=== PATIENT | male | born 1940 | race Caucasian/White ===

== ENCOUNTER 2016-11-29 05:21 | Day surgery (SDC) | payer OTHER ==
--- NOTE | 2016-11-26 14:29 | EKG Report ---
Test Performed on : 11/26/2016 2:23:45 PM Test Reason : PAT Blood Pressure : / mmHG Vent. Rate : 084 BPM Atrial Rate : 129 BPM P-R Int : 000 ms QRS Dur : 090 ms QT Int : 380 ms P-R-T Axes : 000 021 005 degrees QTc Int : 449 ms Atrial fibrillation. with premature ventricular or aberrantly conducted complexes. Possible Inferior infarct , age undetermined Abnormal ECG When compared with ECG of 18-OCT-2016 11:36, Borderline criteria for Inferior infarct are now present Confirmed by Octavio Farley MD ([id number]) on 11/28/2016 9:11:17 PM
[2016-11-26 15:15] LABS: HEMATOCRIT 41.3 % (42.0-52.0); HEMOGLOBIN 13.5 g/dL (14.0-18.0); MCH 30.3 PG (27-31); MCHC 32.7 g/dL (33-37); MCV 92.8 FL (81-99); MPV 9.9 FL (7.4-10.4); RBC 4.45 XMIL (4.7-6.1)
[2016-11-26 15:31] LABS: INR 1.59; PROTIME 16.9 Seconds (9.2-11.7); PTT 30.6 Seconds (22.0-36.0)
[2016-11-26 15:35] LABS: AGAP 13; BUN 18 mg/dL (8-22); CALCIUM 9.4 mg/dL (8.8-10.2); CHLORIDE 100 mmol/L (98-107); COSMO 284; POTASSIUM 4.6 mmol/L (3.5-5.1); SODIUM 139 mmol/L (136-145); TCO2 26 mmol/L (25-35)
[2016-11-29] MEDS ORDERED: REGLAN ONE (05:40)
[2016-11-29] MEDS ORDERED: PEPCID ONE (05:40)
[2016-11-29] MEDS ORDERED: LR 1,000 ML ONE (05:40)
[2016-11-29] MEDS ORDERED: KEFZOL 2 GM/D5W 50 ML ONE (05:41)
[2016-11-29 08:20] VITALS: BP 119/56
--- NOTE | 2016-11-29 09:21 | Diag Imaging Result Document ---
PROCEDURE NAME: RETROGRADES 2 OR 3 FILMS - 11/29/2016 RETROGRADE PYELOGRAM, 15 IMAGES: FINDINGS: There is retrograde injection of the right ureteral orifice demonstrating a fairly normal ureter and collecting system. The orientation of the collecting system is somewhat unusual; however, there are no apparent mass on the recent CT of 10/20/2016. This most likely represents a normal variant orientation of the kidney. A similar appearance is present on the left side. There is no evidence of obstruction or fixed intraluminal filling defect. IMPRESSION: No evidence of mucosal lesion.
[2016-11-29] MEDS ORDERED: FENTANYL ONE (09:47)
[2016-11-29] MEDS ORDERED: DIPRIVAN 1% ONE (09:47)
[2016-11-29] MEDS ORDERED: DECADRON ONE (10:31)
[2016-11-29] MEDS ORDERED: SODIUM CHLORIDE 0.9% 10 ML ONE (10:31)
[2016-11-29] MEDS ORDERED: XYLOCAINE-MPF 2% ONE (10:31)
[2016-11-29] MEDS ORDERED: EPHEDRINE ONE (10:31)
--- NOTE | 2016-11-29 14:59 | OPERATIVE NOTE ---
PROCEDURE DATE: 11/29/2016 SURGEON: Dr. Ronn Pompa. PREOPERATIVE DIAGNOSES: Microscopic hematuria, bladder lesions, atypical urinary cytology. PRIMARY PROCEDURE: Cystoscopy, bilateral retrograde pyelogram, bladder biopsies with fulguration of bleeding. INDICATIONS: 76-year-old male, who presented with UTI. 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 He underwent cytology which revealed atypical cells. He was noted also to have microscopic hematuria. He presents for workup of the hematuria and bladder lesions. FINDINGS: Significant trilobar hypertrophy, unremarkable retrograde pyelograms, adequate hemostasis at the conclusion of the case. After obtaining informed consent, the patient brought to the operating room. Perioperative antibiotics and laryngeal mask anesthesia were administered. He was placed in the lithotomy position, prepped and draped in sterile fashion. 21-[place] rigid cystoscope was introduced. He had significant trilobar prostatic hypertrophy. His bladder had moderate trabeculations, but no diverticula or bladder stones. He did have aforementioned 4-5 areas of flat erythematous patches on the posterior bladder wall concerning for CIS. We began by performing retrograde pyelogram. The cone-tipped ureteral catheter was introduced into the left ureteral orifice and 50% diluted Omnipaque dye was used to perform the retrograde pyelogram. It revealed delicate caliceal system, no evidence of hydroureteronephrosis or filling defects. We then performed the same on the right side. Also revealed delicate caliceal system without evidence of hydroureteronephrosis or filling defects. We then turned our attention to bladder biopsy. Cold cup biopsy graspers were used to perform excisional biopsy of the aforementioned lesions. Those were sent off for pathologic determination. Bugbee electrocautery was used to cauterize the base of the resection as well as the adjacent lesions. Bladder was emptied and repeat look showed no evidence of active bleeding. The cystoscope was removed, he was extubated and taken to PACU for further recovery. ESTIMATED BLOOD LOSS: One mL. COMPLICATIONS: None. DISPOSITION: To PACU and subsequently home with prescriptions for [place] 5 (10), Keflex 500 (10).
== END 2016-11-29 08:25 | disposition home or self-care (01) ==
LOC: OPS 05:21
PROVIDERS: ATTEND Urology
DX: R31.29 Other microscopic hematuria (principal)
CPT/HCPCS: 74420; 80048; 82948; 85027; 85610; 85730; 88305; 88313; 93005; 93010; J0690; J1100; J3010; J7120; Q9966

== ENCOUNTER 2017-02-25 04:27 | Inpatient (IN) ==
[2017-02-25 04:51] LABS: MANUAL DIFF NEEDED? NO
[2017-02-25 04:58] LABS: URINE CULTURE NEEDED? NO; URINE MICRO REVIEW NEEDED? NO; URINE SOURCE CLEAN CATCH
[2017-02-25 05:00] LABS: BASO% 0.2 % (0.0-0.8); EOS# 0.07 X1000 (0.0-0.7); EOS% 0.7 % (0.0-10.0); HEMATOCRIT 38.5 % (42.0-52.0); LYMPH# 2.44 X1000 (1.2-3.4); LYMPH% 25.8 % (20.5-51.1); MCHC 33.8 g/dL (33-37); MCV 91.9 FL (81-99); MONO# 1.22 X1000 (0.11-0.59); MONO% 12.9 % (1.7-9.3); MPV 9.9 FL (7.4-10.4); NEUT% 60.4 % (42.2-75.2); PLT 244 X1000 (130-400); RBC 4.19 XMIL (4.7-6.1)
[2017-02-25 05:03] LABS: BILIRUBIN URINE NEGATIVE (NEGATIVE); BLOOD URINE MODERATE (NEGATIVE); COLOR YELLOW; GLUCOSE URINE NEGATIVE (NEGATIVE); LEUKOCYTES URINE NEGATIVE (NEGATIVE); NITRITE URINE NEGATIVE (NEGATIVE); PROTEIN URINE 50 mg/dL (NEGATIVE); SP GRAVITY URINE 1.019; TURBIDITY URINE CLEAR (CLEAR); UROBILINOGEN URINE NORMAL (NORMAL)
[2017-02-25 05:05] LABS: UR EPITHELIAL CELLS <10 /HPF (<10); URINE BACTERIA NEGATIVE /HPF; URINE RBC <10 /HPF (<10); URINE WBC <10 /HPF (<10)
[2017-02-25 05:13] LABS: ALLEN TEST YES; BE -1.4 mmoll (-3.0-3.0); BLOOD TYPE ARTERIAL; DRAW SITE R RADIAL; MODALITY CANNULA; O2(CT) 18.3 mL/dL (15.0-23.0); PCO2(98.6) 36 mmHg (35-45); PO2(98.6) 92 mmHg (60-100); SAMPLE BLOOD; SAO2 98.3 % (95.0-100.0); THB 13.5 g/dL (11.5-17.4); pH(98.6) 7.41 (7.35-7.45)
[2017-02-25 05:16] LABS: UR AMPHETAMINES QUAL NONE DETECTED (NONE DETECT); UR BARBITUATES QUAL NONE DETECTED (NONE DETECT); UR BENZODIAZEPIN QUAL NONE DETECTED (NONE DETECT); UR CANNABINOIDS QUAL NONE DETECTED (NONE DETECT); UR COCAINE QUAL NONE DETECTED (NONE DETECT); UR METHADONE QUAL NONE DETECTED (NONE DETECT); UR OPIATES QUAL PRESUMPTIVE POSITIVE (NONE DETECT); UR OXYCODONE QUAL NONE DETECTED (NONE DETECT); UR PCP QUAL NONE DETECTED (NONE DETECT)
[2017-02-25 05:33] LABS: ALBUMIN 3.5 g/dL (3.5-5.0); CALCIUM 9.1 mg/dL (8.8-10.2); POTASSIUM 4.4 mmol/L (3.5-5.1); TOTAL BILIRUBIN 0.52 mg/dL (0.20-1.00); TOTAL PROTEIN 7.2 g/dL (6.3-8.3)
--- NOTE | 2017-02-25 05:35 | EKG Report ---
Test Performed on : 02/25/2017 04:30:10 AM Test Reason : weakness Blood Pressure : / mmHG Vent. Rate : 097 BPM Atrial Rate : 092 BPM P-R Int : 000 ms QRS Dur : 094 ms QT Int : 350 ms P-R-T Axes : 000 050 016 degrees QTc Int : 444 ms Atrial fibrillation. Abnormal ECG When compared with ECG of 26-NOV-2016 14:23, Borderline criteria for Inferior infarct are no longer present Unconfirmed Result
[2017-02-25 06:29] LABS: INR 2.18; PROTIME 24.1 Seconds (9.2-11.7); PTT 42.2 Seconds (22.0-36.0)
--- NOTE | 2017-02-25 06:57 | PROVIDER DOCUMENTATION ---
HPI-General Adult - General Chief Complaint: Altered Mental Status Stated Complaint: weakness n/v Time Seen by Provider: 02/25/17 05:07 Source: patient, family Allergies/Adverse Reactions: Patient Allergies Allergy/AdvReac Type Severity Reaction Status Date / Time pneumococcal vaccine Allergy Mild SWELLING Verified 02/25/17 05:11 Home Medications: Home Medication List Medication Instructions Recorded Confirmed Last Taken Type Metoprolol Succinate E.r. [Toprol 50 mg PO BID 08/07/12 02/25/17 02/24/17 20:30 History Xl] Omeprazole Magnesium [Prilosec Otc] 40 mg PO QAM 08/07/12 02/25/17 02/24/17 11: 00 History Furosemide [Lasix] 40 mg PO QAM 12/30/12 02/25/17 02/24/17 11:00 History Metformin [Glucophage] 1,000 mg PO BID 12/30/12 02/25/17 02/24/17 20:30 History Potassium Chloride E.r. [Klor-Con] 20 meq PO QAM 12/30/12 02/25/17 02/24/17 11: 00 History Warfarin [Coumadin] 4 mg PO DIRECTED 12/30/12 02/25/17 02/24/17 20:30 History Ascorbic Acid [Vitamin C] 500 mg PO QAM 10/18/16 02/25/17 02/24/17 11:00 History Aspirin [Aspirin EC] 81 mg PO QAM 10/18/16 02/25/17 02/24/17 11:00 History Atorvastatin Calcium [Lipitor] 40 mg PO QHS 10/18/16 02/25/17 02/24/17 20:30 History Beta-Carotene [Beta Carotene] 75,000 unit PO QAM 10/18/16 02/25/17 02/24/17 11: 00 History Cetirizine HCl [Zyrtec] 10 mg PO QHS 10/18/16 02/25/17 02/24/17 20:30 History Gabapentin 200 mg PO BID 10/18/16 02/25/17 02/24/17 20:30 History Glimepiride 4 mg PO BID 10/18/16 02/25/17 02/24/17 20:30 History Insulin Detemir [Levemir] 20 unit SUBQ QAM 10/18/16 02/25/17 02/24/17 11:00 History Insulin Detemir [Levemir] 80 unit SUBQ QHS 10/18/16 02/25/17 02/24/17 20:30 History Levothyroxine [Synthroid] 112 microgm PO QAM 10/18/16 02/25/17 02/24/17 11:00 History Selenium 200 mcg PO QAM 10/18/16 02/25/17 02/24/17 11:00 History Calcium & Magnesium Carbonate 1 each PO QAM 11/26/16 02/25/17 02/24/17 11:00 History [Antacid Gelcap] Multivit-Min/FA/Lycopen/Lutein 1 each PO QAM 11/26/16 02/25/17 02/24/17 11:00 History [Centrum Silver Tablet] Ramipril [Altace] 10 mg PO QAM 11/26/16 02/25/17 02/24/17 11:00 History Mirabegron E.r. [Myrbetriq E.r] 25 mg PO QHS 02/25/17 02/25/17 02/24/17 20:30 History Warfarin [Coumadin] 2 mg PO DIRECTED 02/25/17 02/25/17 02/22/17 History - History of Present Illness -Gen Adult Nature of Presenting Problems: presents with generalized weakness. Pt felll while trying to get out of bed Thurs nite/Fri am, as unable to get up. EMS was called, helped pt back to bed. He had no pain @ time. He says the sl drop getting out of bed is what made him fall, no premonitory sx. Weakness has continued since the. He has been able to ambulate some with a walker. Daughter and noticed L eye drooping some since Sat. They were waiting to see his PCP tomorrow. This am, pt called because he had gotten turned cross-ways in bed, was unable to get up. He has had sl increased SOB. No abd pain, but had N/V x1 yest, and has had some diarrhea. Pt's only other fall was in Oct, when he was found to have a UTI, and was admitted for IV abx Location of Pain/Injury: reports: none Quality of Pain: reports: none Modifying Factors: improves with: movement (makes sx worse) Associated Symptoms: reports: other (see HPI) Similar Symptoms Previously?: Yes Recently seen or treated by another doctor?: No Review of Systems - Adult - REVIEW OF SYSTEMS - ADULT Constitutional: reports: see HPI Eyes: reports: see HPI Ears, Nose, Mouth & Throat: reports: no symptoms reported Cardiovascular: reports: no symptoms reported Respiratory: reports: see HPI Gastrointestinal: reports: see HPI Genitourinary: reports: no symptoms reported Musculoskeletal: reports: see HPI Integumentary: reports: no symptoms reported Neurological: reports: see HPI Psychiatric: reports: no symptoms reported Endocrine: reports: no symptoms reported Hematologic/Lymphatic: reports: no symptoms reported Allergic/Immunologic: reports: no symptoms reported Past History - Adult - PAST MEDICAL HISTORY-ADULT Review of Records: reports: Medications Reviewed Cardiovascular: reports: A-Fib, CAD, HTN Respiratory: reports: sleep apnea Musculoskeletal: reports: denies history Neurological: reports: other (benign positional vertigo) Endocrine/Immune: reports: Diabetes 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 - FAMILY HISTORY Family History: reviewed, not pertinent - SOCIAL HISTORY Smoking: denies Physical Exam-General - PHYSICAL EXAM-ADULT Initial Vital Signs Reviewed: Yes - CONSTITUTIONAL General Appearance: appears well, alert, no apparent distress - EYES Eyes: PERRL/EOMI, pink conjunctivae - HEAD, EARS, NOSE, MOUTH & THROAT HENMT: normocephalic/atraumatic, moist mucous membranes, normal ENT inspection, pharynx normal - NECK Neck: full range of motion, supple - RESPIRATORY Respiratory: lungs clear, normal breath sounds, no pleuratic chest pain, no respiratory distress, no accessory muscle use - CARDIOVASCULAR Cardiovascular: normal peripheral pulses, regular rate, rhythm, no gallop - GASTROINTESTINAL (ABDOMEN) Abdominal Exam: normal bowel sounds, non tender, soft - MUSCULOSKELETAL Back Exam: other (deferred, pt unable to sit) Extremity: normal range of motion, non-tender, pedal edema (2+) Peripheral Pulses: radial (R): 4+, radial (L): 4+ DTR: tricep (R): 4+, tricep (L): 4+, knee (R): 4+, knee (L): 4+, ankle (R): 4+, ankle (L): 4+ - SKIN Integumentary: normal color, normal turgor, warm/dry - NEUROLOGIC 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, grossly normal, no motor/sensory deficits - PSYCHIATRIC Psych/Mental Status: normal mood/affect, normal thought content, normal thought process, oriented x 3 Progress - PLAN OF CARE/RESULTS Progress/Plan/Lab Results: Vital Signs - 8 hr 02/25/17 04:36 02/25/17 05:23 02/25/17 06:19 Temperature 99.2 F 98.9 F Pulse Rate 100 H 94 H 99 H Respiratory Rate 19 19 16 Blood Pressure 111/82 136/78 154/78 O2 Sat by Pulse Oximetry 93 L 96 99 Laboratory Results - last 24 hr 02/25/17 02/25/17 02/25/17 04:30 04:30 04:30 WBC 9.46 RBC 4.19 L Hgb 13.0 L Hct 38.5 L MCV 91.9 MCH 31.0 MCHC 33.8 RDW Std Deviation 15.0 H Plt Count 244 MPV 9.9 Immature Gran % (Auto) 0.0 Neut % (Auto) 60.4 Lymph % (Auto) 25.8 [place] % (Auto) 12.9 H Eos % (Auto) 0.7 Baso % (Auto) 0.2 Immature Gran # (Auto) 0.00 Neut # (Auto) 5.71 Lymph # (Auto) 2.44 [place] # (Auto) 1.22 H Eos # (Auto) 0.07 Baso # (Auto) 0.02 PT INR PTT (Actin FS) Specimen Type Sample Site pH pCO2 pO2 HCO3 Base Excess Oxyhemoglobin ABG O2 Sat (Calculated) ABG O2 Saturation ABG Carboxyhemoglobin ABG Methemoglobin Geoff Test A-a O2 Difference Total Hemoglobin Lactate Liter Flow Blood Gas Modality FiO2 % Sodium 139 Potassium 4.4 Chloride 100 Carbon Dioxide 23 L Anion Gap 16 BUN 21 Creatinine 1.2 Estimated GFR/1.73 m2 59 BUN/Creatinine Ratio 18 Glucose 179 H Calculated Osmolality 285 Calcium 9.1 Total Bilirubin 0.52 AST 20 ALT 28 Alkaline Phosphatase 71 Creatine Kinase 30 Troponin T Total Protein 7.2 Albumin 3.5 Globulin 3.7 Albumin/Globulin Ratio 0.9 Urine Source Urine Color Urine Turbidity Urine pH Ur Specific [place] Urine Protein Ur Glucose (Stick) Ur Ketones (Stick) Urine Blood Urine Nitrite Urine Bilirubin Urobilinogen Dipstick Urine Leukocytes Urine WBC (Auto) Urine RBC (Auto) U Epithel Cells (Auto) Urine Bacteria (Auto) Urine Opiates Screen Ur Oxycodone Screen Ur Methadone, Qual Ur Barbiturates Screen Ur Phencyclidine Scrn Ur Amphetamines Screen U Benzodiazepines Scrn Urine Cocaine Screen U Cannabinoids Screen Plasma/Serum Ethyl Alc 02/25/17 02/25/17 02/25/17 04:30 04:30 04:44 WBC RBC Hgb Hct MCV MCH MCHC RDW Std Deviation Plt Count MPV Immature Gran % (Auto) Neut % (Auto) Lymph % (Auto) [place] % (Auto) Eos % (Auto) Baso % (Auto) Immature Gran # (Auto) Neut # (Auto) Lymph # (Auto) [place] # (Auto) Eos # (Auto) Baso # (Auto) PT 24.1 H INR 2.18 PTT (Actin FS) 42.2 H Specimen Type ARTERIAL Sample Site R RADIAL pH 7.41 pCO2 36 pO2 92 HCO3 23.8 Base Excess -1.4 Oxyhemoglobin 95.9 ABG O2 Sat (Calculated) 18.3 ABG O2 Saturation 98.3 ABG Carboxyhemoglobin 1.40 ABG Methemoglobin 1.0 Geoff Test YES A-a O2 Difference 63.0 Total Hemoglobin 13.5 Lactate 1.80 Liter Flow 2.0 Blood Gas Modality CANNULA FiO2 % 28.0 Sodium Potassium Chloride Carbon Dioxide Anion Gap BUN Creatinine Estimated GFR/1.73 m2 BUN/Creatinine Ratio Glucose Calculated Osmolality Calcium Total Bilirubin AST ALT Alkaline Phosphatase Creatine Kinase Troponin T < 0.010 Total Protein Albumin Globulin Albumin/Globulin Ratio Urine Source Urine Color Urine Turbidity Urine pH Ur Specific [place] Urine Protein Ur Glucose (Stick) Ur Ketones (Stick) Urine Blood Urine Nitrite Urine Bilirubin Urobilinogen Dipstick Urine Leukocytes Urine WBC (Auto) Urine RBC (Auto) U Epithel Cells (Auto) Urine Bacteria (Auto) Urine Opiates Screen Ur Oxycodone Screen Ur Methadone, Qual Ur Barbiturates Screen Ur Phencyclidine Scrn Ur Amphetamines Screen U Benzodiazepines Scrn Urine Cocaine Screen U Cannabinoids Screen Plasma/Serum Ethyl Alc 02/25/17 02/25/17 04:48 04:48 WBC RBC Hgb Hct MCV MCH MCHC RDW Std Deviation Plt Count MPV Immature Gran % (Auto) Neut % (Auto) Lymph % (Auto) [place] % (Auto) Eos % (Auto) Baso % (Auto) Immature Gran # (Auto) Neut # (Auto) Lymph # (Auto) [place] # (Auto) Eos # (Auto) Baso # (Auto) PT INR PTT (Actin FS) Specimen Type Sample Site pH pCO2 pO2 HCO3 Base Excess Oxyhemoglobin ABG O2 Sat (Calculated) ABG O2 Saturation ABG Carboxyhemoglobin ABG Methemoglobin Geoff Test A-a O2 Difference Total Hemoglobin Lactate Liter Flow Blood Gas Modality FiO2 % Sodium Potassium Chloride Carbon Dioxide Anion Gap BUN Creatinine Estimated GFR/1.73 m2 BUN/Creatinine Ratio Glucose Calculated Osmolality Calcium Total Bilirubin AST ALT Alkaline Phosphatase Creatine Kinase Troponin T Total Protein Albumin Globulin Albumin/Globulin Ratio Urine Source CLEAN CATCH Urine Color YELLOW Urine Turbidity CLEAR Urine pH 5.0 Ur Specific [place] 1.019 Urine Protein 50 A Ur Glucose (Stick) NEGATIVE Ur Ketones (Stick) NEGATIVE Urine Blood MODERATE A Urine Nitrite NEGATIVE Urine Bilirubin NEGATIVE Urobilinogen Dipstick NORMAL Urine Leukocytes NEGATIVE Urine WBC (Auto) <10 Urine RBC (Auto) <10 U Epithel Cells (Auto) <10 Urine Bacteria (Auto) NEGATIVE Urine Opiates Screen PRESUMPTIVE POSITIVE A Ur Oxycodone Screen NONE DETECTED Ur Methadone, Qual NONE DETECTED Ur Barbiturates Screen NONE DETECTED Ur Phencyclidine Scrn NONE DETECTED Ur Amphetamines Screen NONE DETECTED U Benzodiazepines Scrn NONE DETECTED Urine Cocaine Screen NONE DETECTED U Cannabinoids Screen NONE DETECTED Plasma/Serum Ethyl Alc Orders Category Date Time Status Cardiac Monitoring DIRECTED Care 02/25/17 04:44 Active Finger Stick Blood Sugar (ED) DIRECTED Care 02/25/17 04:44 Active Oxygen Therapy- ED Nursing DIRECTED Care 02/25/17 04:44 Active Saline Loc NOW Care 02/25/17 04:44 Active CHEST-PORTABLE [RAD] Stat Exams 02/25/17 04:44 Taken HEAD W/O CONTRAST [CT] Stat Exams 02/25/17 04:33 Taken ABG [RESP] Routine Lab 02/25/17 04:44 Completed ALCOHOL BLOOD Stat Lab 02/25/17 04:30 Completed CBC WITH ELECTRONIC DIFF [HEME] Stat Lab 02/25/17 04:30 Completed CK PROFILE [SP CHEM] Stat Lab 02/25/17 04:30 Completed COMPREHENSIVE METABOLIC PANEL [CHEM] Stat Lab 02/25/17 04:30 Completed PROTIME WITH INR [COAG] Stat Lab 02/25/17 04:30 Completed PTT [COAG] Stat Lab 02/25/17 04:30 Completed TROPONIN T Stat Lab 02/25/17 04:30 Completed URINALYSIS W/POSS RFLX CULT-1 [URINALYSIS] Stat Lab 02/25/17 04:48 Completed URINE DRUG SCREEN Stat Lab 02/25/17 04:48 Completed Pulse Oximetry Stat Oth 02/25/17 04:44 Active EKG [EKG] Stat Ther 02/25/17 04:28 Draft Result Diagrams: 02/25/17 04:30 02/25/17 04:30 - REASSESSMENT Reassessment #1 Time Reassessed: 09:48 (still with weakness. Discussed results with pt and family) Status: unchanged - CONSULTS/PCP/HOSPITALIST Notification Time Discussed: 09:49 Consult Disposition: Admit Departure - Departure Time of Disposition Decision: 09:49 DIAGNOSIS: Weakness generalized Disposition: ADMITTED INPATIENT 09 Certified Medical Emergency: Emergent Condition: Good Referrals and Follow-Ups: Josiah Galvin MD [Primary Care Provider] - - Critical Care Note This patient required my direct & personal management of CC.: No
--- NOTE | 2017-02-25 07:07 | Diag Imaging Result Doc PS360 ---
HEAD W/O CONTRAST - 02/25/2017 INDICATION: AMS, weakness TECHNIQUE: A CT dose reduction protocol was used. COMPARISON: 10/18/2016 FINDINGS: The ventricles and sulci are normal in size and contour. There is stable minimal periventricular white matter chronic microvascular disease. No intracranial mass or hemorrhage. The skull is intact. The sinuses, mastoids, and middle ears are clear. IMPRESSION: Negative exam. Electronically signed by Juancarlos Alvarez 02/25/2017 7:05 AM
--- NOTE | 2017-02-25 07:28 | Diag Imaging Result Doc PS360 ---
EXAM: CHEST-PORTABLE HISTORY: AMS TECHNIQUE: Portable COMPARISON: 10/18/2016. FINDINGS: The lungs are well expanded. The heart is borderline mildly prominent. The vessels are not distended. There is increased density in the mid left lung. No pleural effusions identified. IMPRESSION: Interval development of a small infiltrate in the mid left lung. Follow-up PA and lateral recommended. Electronically signed by Michael Loja 02/25/2017 7:26 AM
[2017-02-25] MEDS ORDERED: ROCEPHIN 1 GM/NS 1 GM/50 ML IVPB IV ONE (11:11)
[2017-02-25] MEDS ORDERED: ZOFRAN IV PRN (14:04)
--- NOTE | 2017-02-25 15:10 | HISTORY AND PHYSICAL ---
PRIMARY CARE PROVIDER: Dr. Galvin. CHIEF COMPLAINT: Generalized weakness, confusion. HISTORY OF PRESENT ILLNESS: Mr. Land is a 76-year-old, morbidly obese, male with multiple medical problems including coronary artery disease, obstructive sleep apnea, BPH, diabetes myelitis, hyperlipidemia, who has been having some weakness that started in October of this year. He was admitted for lower extremity weakness and falling at that time and was diagnosed with a UTI. He went home with home health and physical therapy. Was on a walker up until January and then downsized to a cane. He apparently was improving. He had no rehabilitation at that time. On Saturday morning he hit his [employer] Alert button. found him on the floor after he was trying to get out of bed. She states that she has noticed he has become more sleepy over the last couple day days and that he has regressed back to a walker. She found him sprawled residential across his bed this morning and was unable to get out of the bed and she noted some confusion with left facial drooping and a little bit of slurred speech. She called 911 and he was brought here. Workup laboratory elizalde revealed that he had positive opiates on his urine drug screen, although the patient and deny that he takes any pain medications at home other than Tylenol or ibuprofen. He is quite drowsy. He does still have a left facial droop but pupils are equal. 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 He does complain of some numbness and tingling in the lower extremities. He denies any nausea, vomiting, or diarrhea today but yesterday had a spell of vomiting that was clear water and some diarrhea, but none today. He has a history of atrial fibrillation. Has been on Coumadin therapy for that. His INR is therapeutic at this time. Will admit and do further workup for rule out of stroke. His chest x-ray reveals that he does have a small infiltrate on the left and will go ahead and start antibiotic therapy for possible community-acquired pneumonia. Urinalysis was negative for any infection. PAST MEDICAL HISTORY: Coronary artery disease since age of 50. Only had 1 heart attack and apparently has 12 cardiac stent. Hypertension, obstructive sleep apnea and uses CPAP at home, hyperlipidemia, GERD, dysphagia, BPH, type 2 diabetes, chronic atrial fibrillation on Coumadin therapy, hypothyroidism, and vertigo. PAST SURGICAL HISTORY: Bilateral cataracts, 12 cardiac stents, tonsillectomy, lap band surgery, inguinal hernia repair. SOCIAL HISTORY: Denies tobacco, alcohol, or illicit drug use. FAMILY HISTORY: Mother had coronary artery disease and colon cancer. Father had lung disease. REVIEW OF SYSTEMS: Difficult to obtain as patient was very drowsy, but all were negative except for those mentioned above in the HPI. ALLERGIES: Pneumococcal vaccine. HOME MEDICATIONS: Vitamin C 500 mg p.o. daily, aspirin enteric-coated 81 mg p.o. daily, Lipitor 40 mg p.o. nightly, beta carotene 32449 units p.o. daily, calcium and magnesium carbonate 1 tab p.o. daily, Zyrtec 10 mg p.o. nightly, Lasix 40 mg p.o. daily, Neurontin 200 mg p.o. twice daily, Glimepiride 4 mg p.o. twice daily, Levemir 80 units subcutaneous nightly, Levemir 20 units subcutaneous daily, Synthroid 112 mcg p.o. daily, metformin 1000 mg p.o. twice daily, metoprolol succinate extended release 50 mg p.o. twice daily, Myrbetriq extended release 25 mg p.o. nightly, Centrum Silver tablets 1 tab p.o. daily, Prilosec ftnh-uyz-scymdfc 40 mg p.o. daily, potassium chloride extended release 20 mEq p.o. daily, Altace (ramipril) 10 mg p.o. daily , selenium 200 mcg p.o. daily, Coumadin 4 mg every night except for Wednesdays and Fridays he takes 2 mg. PHYSICAL EXAMINATION: VITAL SIGNS: Temperature is 98.9 degrees, heart rate 92, respiratory rate 20, blood pressure 136/100, saturation 97% on nasal cannula. GENERAL: Mr. Moe Land is a 76-year-old, morbidly obese, male. He is in no acute distress. He is quite lethargic but is able answer questions appropriately with frequent verbal and physical stimulation. HEENT: Atraumatic, normocephalic. Pupils equal, round, reactive to light. He is not symmetric. He has a left facial droop and left eye droop. Tongue deviates to the right. NECK: Unable to assess JVD given body habitus but no carotid bruits. CARDIOVASCULAR: Irregularly irregular rate and rhythm. No rubs, gallops, or murmurs. PULMONARY: Clear to auscultation. Bilateral breath sounds. No accessory muscle use or work of breathing noted. GI: Morbidly obese. Positive bowel sounds. Nontender. EXTREMITIES: Edema noted in the lower extremities. This is chronic in nature. There are +2 dorsalis and radial pulses. NEUROLOGIC: Weakness in all extremities but equal weakness, about 3.5/5. Decreased sensation in the lower extremities. SKIN: Warm, dry, intact. There are 2 places on his back that look like they were scabbed over. LABORATORY DATA: White blood cells 9,000, hemoglobin 13, hematocrit 38, platelet count 244,000. INR 2.18, PTT is 42.2. ABGs, pH 7.41, pCO2 36, PO2 92, bicarb 23, base excess - 1.4, O2 saturation 95.9%, lactate 1.8; this is on 2 L nasal cannula. Sodium 139, potassium 4.4, BUN 21, creatinine is 1.2, glucose 179, calcium 9.1, total bilirubin 0.52, AST 20, ALT 28. CK 30. Troponin is less than 0.01. Urinalysis 50 protein, moderate blood. Urine drug screen positive opiates, otherwise negative. Alcohol negative. IMAGING: Head CT was negative. EKG showed atrial fibrillation with a rate of 97. QTc was 444. No ST elevations. Chest x-ray showed development of a small infiltrate in the mid left lung. ASSESSMENT AND PLAN: 1. Generalized weakness, rule out cerebrovascular accident. Will follow up with an MRI of the brain and neck. He does have some left facial droop and his tongue does seem to deviate to the right, although he has generalized weakness. He is very lethargic but oriented. There is some concern that his urine drug screen positive for opiates but patient and states that he only takes Tylenol or ibuprofen for pain. Will do physical therapy. 2. Community-acquired pneumonia. Some infiltrates starting to show in the left mid lung on the chest x-ray. We will do Rocephin, pulmonary toilet, and nebulizers. 3. Obstructive sleep apnea. Continue home CPAP. 4. Hypertension. Continue home medications. 5. History of coronary artery disease with myocardial infarction. Continue home medications. 6. Chronic atrial fibrillation. Continue anti arrhythmic with Coumadin therapy. Daily INRs. 7. Hyperlipidemia. Will stop statins for now as patient has generalized weakness. Will likely need to resume. 8. Gastroesophageal reflux disease. Continue home medications. 9. Diabetes mellitus type 2. Continue with pattern blood glucoses, sliding scale insulin, and diabetic diet. 10. Hypothyroidism. Continue home medications. 11. Gastrointestinal prophylaxis. Proton pump inhibitor. 12. Deep venous thrombosis prophylaxis will be with his Coumadin. Dictated by FAREED Valencia for Gus Tanner MD cc: FAREED Valencia MD pt examined, nonfocal exam, will get neuro input, unable to get MRI, so may reconsider reimaging with head CT in 24-48 hours if not improved this could be metabolic due to infection APENOT MTDD
[2017-02-25] MEDS: XOPENEX NEB INH SCH ×2 (17:27→23:17)
[2017-02-25] MEDS: ATROVENT NEB INH SCH ×2 (17:27→23:17)
[2017-02-25] MEDS: HUMULIN R SUBQ SCH ×2 (17:46→22:56)
--- NOTE | 2017-02-25 19:35 | Extremity Venous Study ---
PROCEDURE NAME: Venous U/S Bilateral Legs - 02/25/2017 BILATERAL LOWER EXTREMITY VENOUS ULTRASOUND: PLAYGROUND EQUIPMENT ERECTOR: Prashant. REQUESTING PHYSICIAN: Gus Tanner MD. INDICATION: Pain and shortness of breath. FINDINGS: All deep and superficial veins of bilateral lower extremities were visualized along their course. All veins were compressible with forward flow. No evidence intraluminal thrombus. cc: MD Taryn Carrasco CRNP
[2017-02-25] MEDS: TOPROL XL PO SCH (21:32)
[2017-02-25] MEDS: MYRBETRIQ E.R. PO SCH (21:33)
[2017-02-25] MEDS: COUMADIN PO SCH (21:33)
[2017-02-25] MEDS: ZYRTEC PO SCH (21:33)
[2017-02-25] MEDS: LEVEMIR SUBQ SCH (22:54)
[2017-02-25] MEDS: PULMICORT INH SCH (23:17)
[2017-02-26] MEDS: ATROVENT NEB INH SCH ×4 (03:48→21:20)
[2017-02-26] MEDS: XOPENEX NEB INH SCH ×4 (03:49→21:20)
[2017-02-26] MEDS: TYLENOL PO PRN ×2 (06:37→20:01)
[2017-02-26] MEDS: HUMULIN R SUBQ SCH ×4 (06:37→21:34)
[2017-02-26 06:41] LABS: MANUAL DIFF NEEDED? NO
[2017-02-26 06:44] LABS: BASO% 0.1 % (0.0-0.8); EOS# 0.01 X1000 (0.0-0.7); EOS% 0.1 % (0.0-10.0); HEMOGLOBIN 12.5 g/dL (14.0-18.0); LYMPH# 1.77 X1000 (1.2-3.4); LYMPH% 20.7 % (20.5-51.1); MCHC 32.9 g/dL (33-37); MCV 91.3 FL (81-99); MONO# 0.85 X1000 (0.11-0.59); MPV 9.7 FL (7.4-10.4); NEUT% 69.1 % (42.2-75.2); PLT 217 X1000 (130-400); RBC 4.16 XMIL (4.7-6.1)
[2017-02-26 06:53] LABS: PTT 39.9 Seconds (22.0-36.0)
[2017-02-26 06:56] LABS: INR 2.25; PROTIME 24.9 Seconds (9.2-11.7)
[2017-02-26 06:57] LABS: AGAP 14; ALBUMIN 3.2 g/dL (3.5-5.0); ALKALINE PHOSPHATASE 62 U/L (32-122); BUN 13 mg/dL (8-22); CALCIUM 8.8 mg/dL (8.8-10.2); CHLORIDE 97 mmol/L (98-107); COSMO 277; GOT 22 U/L (10-34); GPT 21 U/L (10-44); MAGNESIUM 1.8 mg/dL (1.5-2.7); POTASSIUM 4.4 mmol/L (3.5-5.1); SODIUM 135 mmol/L (136-145); TCO2 24 mmol/L (25-35); TOTAL BILIRUBIN 0.64 mg/dL (0.20-1.00)
[2017-02-26 06:58] LABS: HEMOGLOBIN A1C 7.9 % (4.8-6.0)
--- NOTE | 2017-02-26 07:01 | EKG Report ---
Test Performed on : 02/26/2017 06:18:47 AM Test Reason : afib Blood Pressure : / mmHG Vent. Rate : 100 BPM Atrial Rate : 119 BPM P-R Int : 000 ms QRS Dur : 090 ms QT Int : 350 ms P-R-T Axes : 000 064 041 degrees QTc Int : 451 ms Atrial fibrillation. with premature ventricular or aberrantly conducted complexes. Abnormal ECG No previous ECGs available Confirmed by Andrew Lala MD ([id number]) on 02/27/2017 7:16:20 AM
[2017-02-26] MEDS ORDERED: INSULIN PEN NEEDLES ONE (07:08)
[2017-02-26] MEDS: PULMICORT INH SCH ×2 (09:58→21:20)
[2017-02-26] MEDS: TOPROL XL PO SCH ×2 (10:44→20:00)
[2017-02-26] MEDS: MAALOX PLUS LIQUID PO SCH (10:44)
[2017-02-26] MEDS: ALTACE PO SCH (10:44)
[2017-02-26] MEDS: SYNTHROID PO SCH (10:44)
[2017-02-26] MEDS: ASPIRIN EC PO SCH (10:45)
[2017-02-26] MEDS: VITAMIN C PO SCH (10:45)
[2017-02-26] MEDS: PRILOSEC PO SCH (10:45)
[2017-02-26] MEDS: KLOR-CON PO SCH (10:45)
[2017-02-26] MEDS: CENTRUM SILVER PO SCH (10:45)
[2017-02-26] MEDS: LASIX PO SCH (10:45)
[2017-02-26] MEDS: LEVEMIR SUBQ SCH ×2 (10:47→21:35)
[2017-02-26] MEDS: PATIENT'S OWN MED PO SCH ×2 (10:55→10:56)
--- NOTE | 2017-02-26 11:29 | PROGRESS NOTE ---
DATE: 02/26/2017 SUBJECTIVE: Mr. Moe Land is a 76-year-old male, morbidly obese, who wears his BiPAP or CPAP at night. Wore it last night. Apparently he spiked a fever through the night and, given his infiltrates on his chest x-ray, will add 1 more IV antibiotic of azithromycin to his regimen of Rocephin. The family is concerned about patient unable to get MRI here. Options discussed included maybe an open MRI once he is at outpatient and is able to follow up with his primary care provider. The patient is much more alert this morning than yesterday. Patient' s daughter and , who are at the bedside, are concerned about the urine drug screen, and state that they are pretty sure he does not have any home medications that would include opiates, but they were instructed to go home and continue to evaluate the medications that are at home. Now he is afebrile, and he states that he feels much better. OBJECTIVE: Vital Signs: Temperature 98.6 degrees, but he got up to a T-max of 102.2 degrees at 6 this morning. Heart rate 87, respiratory rate 14, blood pressure 127/77, O2 saturation 93% on 2 L. General: Mr. Moe Land is a 76-year-old, morbidly obese, male. He is in no acute distress. He is able to answer questions. Cardiovascular: Irregularly irregular rate and rhythm. No rubs, gallops, or murmurs. Pulmonary: Clear to auscultation. Bilateral breath sounds. No accessory muscle use or work of breathing noted. Currently on 2 L nasal cannula. GI: Soft, nontender, obese. Positive bowel sounds x4. Extremities: There is +1 lower extremity edema and +2 dorsalis pedal and radial pulses. Neurologic: He is oriented. Moves all extremities equally. Still with generalized weakness. Much improved from yesterday. LABORATORY DATA: White blood cells 8000, hemoglobin 12, hematocrit 38, platelet count 217. INR is 2.25. Sodium 135, potassium 4.4, BUN 13, creatinine is 1.1, glucose 224. Hemoglobin A1c is 7.9. Magnesium 1.8. Bilirubin 0.64, AST 22, ALT 21. CRP is 133. Albumin 3.2. TSH 0.84. IMAGING: EKG reveals atrial fibrillation with PVCs; rate is 119. QTc 45. Lower extremity ultrasound: All deep and superficial veins of the bilateral lower extremities were visualized. They were compressible and there was no evidence of intraluminal thrombus. Echocardiogram is pending and will be performed today. ASSESSMENT AND PLAN: 1. Generalized weakness. Rule out cerebrovascular accident. Head CT was negative. Unable to follow up with MRI secondary to patient's size. There appears to be no more left facial droop, and his tongue does not deviate. Still continues to have generalized weakness. Will continue physical therapy. He is not lethargic anymore. 2. Encephalopathy. Neurology has been consulted. Patient's mentation has improved quite a bit since yesterday. 3. Community-acquired pneumonia bilaterally. Did state left mid lung both bilateral. He is on Rocephin. Will add azithromycin as he became febrile throughout the night. Continue pulmonary toilet nebulizers. 4. Obstructive sleep apnea. Continue home CPAP. 5. Hypertension, stable. 6. History of coronary artery disease and myocardial infarction. Continue current medication regimen. 7. Chronic atrial fibrillation. Continue antiarrhythmic and Coumadin therapy. Daily INR's; INR is therapeutic at this time. 8. Hyperlipidemia. Hold statin for now. 9. Gastroesophageal reflux disease. Continue home medications. 10. Diabetes mellitus type 2. Continue pattern blood glucoses, sliding scale insulin and diabetic diet. Will increase sliding scale insulin from low dose to moderate dose. He is on his home Lantus and his hemoglobin A1c was. 7.9; this is uncontrolled. 11. Hypothyroidism. Continue Synthroid. 12. Deep venous thrombosis prophylaxis. He is on Coumadin. Dictated by FAREED Valencia for Gus Tanner MD cc: FAREED Valencia MD pt examined, will repeat head CT and follow closely, likeley metabolic encephalopathy due to pneumonia APENOT MTDD
[2017-02-26] MEDS: ZITHROMAX 500 MG/NS 500 MG/250 ML IVPB IV SCH (11:38)
--- NOTE | 2017-02-26 12:41 | CONSULTATION ---
DATE OF CONSULTATION: 02/26/2017 HISTORY: Mr. Land is 76 years old, and he had a neurologic change several days ago. History from the patient is that he remembers his telling him that something was not right and that he needed to come to the hospital. He reports not being aware of any specific problem. Attentive family at the bedside including and daughter reports that he has seemed a little bit weak globally since he was in the hospital with UTI several months ago. During that previous hospitalization, he had transient confusion. Family is adamant that he has not had major forgetfulness but daughter does admit he seems to have some trouble with memory from time to time. Five days ago, he seemed more unsteady than usual when he got up that morning. did not notice him to stumble in one direction more than another. He did fall. He seemed weak all over. Speech may have been slurred. He seemed better later that day and possibly the next day. Daughter noticed left eye lid drooping transiently over the weekend. He was worse again a few days ago and admitted to the hospital. There is no history of serious head injury, previously diagnosed stroke, seizure , other neurologic event. Workup here includes labs showing mild blood sugar elevations. reports blood sugar was 159 when she checked it on Saturday morning when she first noticed recent trouble. Urine drug screen is positive for opiates, but there is no opiate medicine on his home medicine list. On careful questioning, the patient and family cannot report that he has any opiate medicines. Noncontrast CT of the head showed usual white matter changes, but nothing focal or acute. He has been afebrile. Systolic blood pressures have ranged 110 to 130s. Home medicine list contains 22 entries. There are 2 warfarin doses. I do not see any other duplicates. There is no opiate listed. reports she does helps supervise medicine doses. PHYSICAL EXAMINATION: On exam, Mr. Land is awake, alert, attentive. He seems appropriate. Speech is not dysarthric. Language function is intact on brief bedside testing. Remote memory is fair. Recent memory is difficult to carbon dioxide operator with some inconsistent responses. He could not tell me the day of the month or the day of the week, but he was completely oriented to place. He was able to discuss recent news with remarkably accurate detail, but on repeat questioning, again he was not able to tell me the day of the week. He registered 3 items and then could recall just 1 of 3 items at 10 minutes. He interpreted a metaphor and a simile appropriately. He made careless mistakes attempting to spell world backward. His MMSE score is 24 of 30. This score may not be valid based on his trouble maintaining attention and a good bit of commotion at the bedside. Head and neck are unremarkable. Visual lay are full, tested grossly by confrontational finger counting. Extraocular movements are full. Facial motility is symmetric. I do not see ptosis now. Gag is intact. Tongue is midline. Shoulder shrug is equal. Hearing is fair at best. He did well on stqsey-pt-arty testing bilaterally. He demonstrated equal power in the arms and legs. Tone is symmetric in the limbs. Plantar response is silent bilaterally. Reflexes are 1 + at the wrists, absent at the knees and ankles bilaterally. I did not test his gait. He reports diminished pinprick and light touch appreciation in a stocking pattern bilaterally. IMPRESSION: 1. Global encephalopathy, uncertain etiology. Family had noticed possible focal feature including unilateral ptosis, but I do not find that now. Negative CT is reassuring. MRI would be interesting but apparently his physical size prevents MRI at this facility. Reason for encephalopathy is not certain and there may be multiple factors. Family reports transient confusion associated with urinary tract infection management several months ago. There is urine drug screen evidence of opiate but no opiates on medicine list, and I wonder if he has made other mistakes with medicines. I do not see evidence of increased intracranial pressure or anything that needs urgent attention from a neurologic standpoint. History does not sound like seizure. No urgent suggestions. 2. I suspect that he has baseline mild cognitive impairment. I cannot document this based on family's history but, if present, that would predispose him to more dramatic and more protracted encephalopathy from any toxic or metabolic disturbance. 3. He has clinical evidence of peripheral neuropathy, presumed diabetic neuropathy. I do not think that needs attention now. Thanks for asking me to see Mr. Land. cc: MD JESSICA Palencia III
[2017-02-26] MEDS: ROCEPHIN 1 GM/NS 1 GM/50 ML IVPB IV SCH (14:27)
[2017-02-26] MEDS: MYRBETRIQ E.R. PO SCH (20:00)
[2017-02-26] MEDS: COUMADIN PO SCH (20:01)
[2017-02-26] MEDS: ZYRTEC PO SCH (20:01)
[2017-02-26] MEDS ORDERED: TYLENOL PR PRN (20:43)
[2017-02-27] MEDS: XOPENEX NEB INH SCH ×4 (04:46→21:15)
[2017-02-27] MEDS: ATROVENT NEB INH SCH ×4 (04:46→21:15)
[2017-02-27 06:13] LABS: MANUAL DIFF NEEDED? NO
[2017-02-27 06:16] LABS: BASO% 0.2 % (0.0-0.8); HEMATOCRIT 35.9 % (42.0-52.0); HEMOGLOBIN 12.2 g/dL (14.0-18.0); IMM GRAN# 0.02 X1000 (0.0-0.04); IMM GRAN% 0.2 % (0.0-0.5); LYMPH# 1.42 X1000 (1.2-3.4); LYMPH% 17.6 % (20.5-51.1); MCH 30.8 PG (27-31); MCV 90.7 FL (81-99); MONO# 0.59 X1000 (0.11-0.59); MONO% 7.3 % (1.7-9.3); MPV 9.7 FL (7.4-10.4); NEUT% 74.7 % (42.2-75.2); PLT 206 X1000 (130-400); RBC 3.96 XMIL (4.7-6.1)
[2017-02-27 06:25] LABS: INR 2.23; PROTIME 24.6 Seconds (9.2-11.7)
[2017-02-27] MEDS: HUMULIN R SUBQ SCH ×4 (06:39→21:24)
[2017-02-27 07:13] LABS: ALBUMIN 3.1 g/dL (3.5-5.0); CALCIUM 8.7 mg/dL (8.8-10.2); MAGNESIUM 2.1 mg/dL (1.5-2.7); POTASSIUM 4.4 mmol/L (3.5-5.1); TOTAL BILIRUBIN 0.54 mg/dL (0.20-1.00); TOTAL PROTEIN 7.4 g/dL (6.3-8.3)
--- NOTE | 2017-02-27 07:44 | Diag Imaging Result Doc PS360 ---
EXAM: HEAD W/O CONTRAST HISTORY: encephalopathy, r/o cva TECHNIQUE: CT head without contrast and with reduced dose (clarity.) COMMENT: There is some calcification in the right vertebral and both internal carotid arteries. There is patchy lucency in the periventricular white matter particularly in the frontal horns. There is no evidence of bleed mass effect or abnormal extra-axial fluid collection. There are some calcifications in the basal ganglia. Compared to 02/25/2017 there has been no significant change in the appearance of the brain. IMPRESSION: Chronic microvascular white matter changes. No significant change since 02/25/2017. Electronically signed by Del Tran 02/27/2017 7:42 AM
[2017-02-27] MEDS: ALTACE PO SCH (08:10)
[2017-02-27] MEDS: ZITHROMAX 500 MG/NS 500 MG/250 ML IVPB IV SCH (08:10)
[2017-02-27] MEDS: KLOR-CON PO SCH (08:10)
[2017-02-27] MEDS: ASPIRIN EC PO SCH (08:11)
[2017-02-27] MEDS: TOPROL XL PO SCH ×2 (08:11→21:23)
[2017-02-27] MEDS: LASIX PO SCH (08:11)
[2017-02-27] MEDS: SYNTHROID PO SCH (08:11)
[2017-02-27] MEDS: TYLENOL PO PRN ×2 (08:11→21:23)
[2017-02-27] MEDS: MAALOX PLUS LIQUID PO SCH (08:11)
[2017-02-27] MEDS: CENTRUM SILVER PO SCH (08:11)
[2017-02-27] MEDS: VITAMIN C PO SCH (08:11)
[2017-02-27] MEDS: PRILOSEC PO SCH (08:11)
[2017-02-27] MEDS: LEVEMIR SUBQ SCH ×2 (08:12→21:25)
[2017-02-27] MEDS: PATIENT'S OWN MED PO SCH ×2 (08:13)
[2017-02-27] MEDS: PULMICORT INH SCH ×2 (09:12→21:15)
--- NOTE | 2017-02-27 11:55 | PROGRESS NOTE ---
DATE: 02/27/2017 OBJECTIVE: Mr. Land is much more consistently alert and attentive this morning. He answered questions more precisely, more consistently correct. There is no definite focal neurologic finding on brief bedside testing. I reviewed the history with family. IMPRESSION: My impression remains that he likely has a baseline cognitive impairment syndrome which may have been very well compensated at home, even to the point that it was not recognized. However, there is history that he had transient confusion while hospitalized for management of UTI 4 months ago. In that setting, he will be predisposed to protracted and more dramatic clinical encephalopathy with any toxic or metabolic disturbance. I do not know specifically what may have occurred this time, but he is now treated for pneumonia, and he had fever up to 103 yesterday. PLAN: I discussed the possibly of adding cholinesterase inhibitor later, not urgent. I told family that I am optimistic he will continue to be brighter with managing of pneumonia and other medical problems. His repeat noncontrast CT of the head this morning was again unremarkable and unchanged compared to the admission scan. I do not have any suggestion for further neurologic workup now. Thanks for allowing me to follow Mr. Land. cc: Britt Xiao III, MD [facility]ITAL[facility]
[2017-02-27] MEDS: ROCEPHIN 1 GM/NS 1 GM/50 ML IVPB IV SCH (12:56)
[2017-02-27] MEDS: GLUCOPHAGE PO SCH (16:41)
--- NOTE | 2017-02-27 17:11 | PROGRESS NOTE ---
DATE: 02/27/2017 SUBJECTIVE: Mr. Land was admitted on 02/25/2017. He is a patient of Dr. Josiah Galvin. A 76- year-old, morbidly obese, presented with generalized weakness, confusion. Multiple medical problems including coronary artery disease, obstructive sleep apnea, benign prostatic hypertrophy, diabetes mellitus type 2, hyperlipidemia. He has been having some weakness starting in October of this year, mainly in his legs. He was admitted for lower extremity weakness and falling at that time. Diagnosed with UTI. Went home, home health, physical therapy, was on a walker up until January and downsized to a cane. Apparently he is improving. He had no rehabilitation at that time. And Saturday morning he hit his [employer] button. found him on the floor after he was trying to get out of bed. States that she noticed he was becoming more sleepy over the last couple of days and then he regressed back to a walker. She found him sprawled residential across his bed that morning and was unable to get him out of bed and she noted some confusion and possible left facial drooping, a little bit of slurred speech, and felt the left eyelid was a little drooped, but the patient in retrospect feels like that was about his normal baseline. Called 911 and he was brought here. Workup laboratory revealed that he had possible opiates in the urine drug screen, although patient denies ever taking any pain medication other than Tylenol or ibuprofen. He was quite drowsy. He did still have a left facial droop. 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 They were symmetrical. Did complain of some numbness and tingling in the lower extremities. Denied any nausea, vomiting, diarrhea. So he was admitted. He had a sleeve gastroparesis for 2 years and he was miserable and they took it out and he has had trouble with gastroesophageal reflux from that time. He has had trouble with his swallowing since that time. That was done by Dr. Salmon. History of coronary artery disease since age 50. Only 1 heart attack, apparently 12 cardiac stents. History of hypertension, COPD, CPAP at home. Hyperlipidemia, gastroesophageal reflux disease and dysphagia. Patient is better today, sitting up in a chair. Alert and oriented x3. CT of his head done this morning, chronic microvascular white matter changes, but no new focal pathology. ASSESSMENT AND PLAN: 1. Dr. Xiao was consulted and evaluated him yesterday. He felt he had general encephalopathy of uncertain etiology. Family had noticed possible focal features including unilateral ptosis on the left, but he seems to think that has been there and did not see on exam today or yesterday. Negative CT is reassuring. MRI would be interesting but because of size, I do not think that will be a possibility. He is clinically improving. Still has episodes of confusion, and I think that is related to his underlying pneumonia and he may also have some cognitive decline. 2. Pneumonia. Continue to treat with antibiotics. 3. Peripheral neuropathy, probably diabetic neuropathy. 4. Diabetes mellitus type 2. Get him back on his home medicines. 5. Serum creatinine 1.2 which looks good. 6. Weakness in his legs. It has been going on for some time, but would like to initiate physical therapy back again. 7. In review of his orders and I do not see any changes other than add back his home diabetic medications. cc: Geoff Olsen MD
[2017-02-27] MEDS ORDERED: COUMADIN PO SCH (21:00)
[2017-02-27] MEDS: LIPITOR PO SCH (21:23)
[2017-02-27] MEDS: AMARYL PO SCH (21:23)
[2017-02-27] MEDS: MYRBETRIQ E.R. PO SCH (21:23)
[2017-02-27] MEDS: ZYRTEC PO SCH (21:24)
[2017-02-28] MEDS: ATROVENT NEB INH SCH ×4 (04:38→19:48)
[2017-02-28] MEDS: XOPENEX NEB INH SCH ×4 (04:39→19:48)
[2017-02-28] MEDS: HUMULIN R SUBQ SCH ×4 (06:35→21:39)
[2017-02-28 07:10] LABS: MANUAL DIFF NEEDED? NO
[2017-02-28 07:16] LABS: BASO% 0.4 % (0.0-0.8); EOS# 0.06 X1000 (0.0-0.7); EOS% 1.2 % (0.0-10.0); HEMATOCRIT 33.6 % (42.0-52.0); HEMOGLOBIN 11.3 g/dL (14.0-18.0); LYMPH# 1.78 X1000 (1.2-3.4); LYMPH% 35.1 % (20.5-51.1); MCH 30.7 PG (27-31); MCHC 33.6 g/dL (33-37); MCV 91.3 FL (81-99); MONO# 0.58 X1000 (0.11-0.59); MONO% 11.4 % (1.7-9.3); MPV 9.7 FL (7.4-10.4); NEUT% 51.9 % (42.2-75.2); PLT 231 X1000 (130-400); RBC 3.68 XMIL (4.7-6.1)
[2017-02-28 07:25] LABS: INR 2.49; PROTIME 27.7 Seconds (9.2-11.7)
[2017-02-28 07:36] LABS: AGAP 13; ALKALINE PHOSPHATASE 65 U/L (32-122); BUN 19 mg/dL (8-22); CALCIUM 8.6 mg/dL (8.8-10.2); CHLORIDE 99 mmol/L (98-107); COSMO 279; GOT 34 U/L (10-34); GPT 33 U/L (10-44); MAGNESIUM 2.4 mg/dL (1.5-2.7); POTASSIUM 3.9 mmol/L (3.5-5.1); SODIUM 138 mmol/L (136-145); TCO2 26 mmol/L (25-35); TOTAL PROTEIN 6.9 g/dL (6.3-8.3)
[2017-02-28] MEDS: AMARYL PO SCH ×3 (07:44→21:14)
[2017-02-28] MEDS: GLUCOPHAGE PO SCH ×2 (07:44→17:08)
[2017-02-28] MEDS: PRILOSEC PO SCH ×2 (07:45→08:33)
[2017-02-28] MEDS: KLOR-CON PO SCH ×2 (07:45→08:31)
[2017-02-28] MEDS: ASPIRIN EC PO SCH ×2 (07:45→08:31)
[2017-02-28] MEDS: LASIX PO SCH ×2 (07:45→08:32)
[2017-02-28] MEDS: TOPROL XL PO SCH ×3 (07:45→21:14)
[2017-02-28] MEDS: ALTACE PO SCH ×2 (07:45→08:30)
[2017-02-28] MEDS: CENTRUM SILVER PO SCH ×2 (07:46→08:31)
[2017-02-28] MEDS: VITAMIN C PO SCH ×2 (07:46→08:33)
[2017-02-28] MEDS: SYNTHROID PO SCH ×2 (07:46→08:33)
[2017-02-28] MEDS: LEVEMIR SUBQ SCH ×3 (07:49→21:40)
[2017-02-28] MEDS: MAALOX PLUS LIQUID PO SCH ×2 (07:52→08:32)
[2017-02-28] MEDS: PATIENT'S OWN MED PO SCH ×2 (08:32→08:33)
--- NOTE | 2017-02-28 09:15 | PROGRESS NOTE ---
DATE: 02/28/2017 PATIENT LOCATION: Room 358. Mr. Land is awake, alert, bright, attentive, even more appropriate than when I saw him yesterday. Today, he told me that his did discover a recent medication error that may have been at least partly the explanation for his recent mental change. is not present at the bedside now to confirm his report and I am not certain about that history. There is nothing focal neurologically, no evidence of increased pressure, no evidence of EASEMENT MAN infection. I do not think we need any further workup right now from a neurologic standpoint. His encephalopathy seems to be resolving and he may be close to his baseline state. As mentioned before, we might consider cholinesterase inhibitor trial electively. Thanks for allowing me to follow Mr. Land. cc: MD JESSICA Palencia III
[2017-02-28] MEDS: PULMICORT INH SCH ×2 (10:44→19:48)
[2017-02-28] MEDS: ROCEPHIN 1 GM/NS 1 GM/50 ML IVPB IV SCH (11:18)
--- NOTE | 2017-02-28 12:13 | PROGRESS NOTE ---
DATE: 02/28/2017 SUBJECTIVE: Patient has been afebrile and is feeling much better. He is eating well. Breathing is comfortable. He is still very weak and cannot stand, concerned about that. He would like to pursue rehabilitation. OBJECTIVE: Vital Signs: Temperature 97.5 degrees, pulse 75, respirations 20, blood pressure 137/68. Neck: CVP less than 6 cm. Lungs: Clear in all lung lay. Cardiovascular: Regular rhythm and rate, without murmur or S3. LABORATORIES: Blood sugars 234, 144, and 98 was his last one. He had a CBC with white count 5070, hematocrit 33, platelet count 231,000. Chemistry: Sodium 138, potassium 3.9, chloride 99, BUN 19, creatinine 1.1. Blood sugars 144, 124, and 98. ASSESSMENT AND PLAN: 1. He is wake, alert, attentive, and much less confusion. They feel like a recent medication error may have been part of his mental status change. No focal neurologic changes. Making good progress. 2. Pneumonia. Continue to treat. Clinically, much better. Breathing comfortably. Gas and air exchange good. 3. Peripheral neuropathy. Aware. Probably diabetic neuropathy. 4. Diabetes mellitus, type 2. Watch his sugars. He had a 98 and may want to cut down on the insulin. We will see how we do. 5. Serum creatinine 1.2. 6. Weakness in his legs combined with peripheral neuropathy. He needs to go to rehabilitation. I think he would benefit from 21 days of rehabilitation. They would like him to go [facility], so we will see if we can get that set up. cc: Geoff Olsen MD
--- NOTE | 2017-02-28 16:32 | DISCHARGE SUMMARY ---
ADMISSION DATE: 02/25/2017 DISCHARGE DATE: His doctor is Dr. Josiah George. He presented with general weakness and confusion. 76-year-old white male, history of morbid obesity, multiple medical problems including coronary artery disease. He has had multiple stents, obstructive sleep apnea, benign prostatic hypertrophy, diabetes mellitus type 2, hyperlipidemia, He has been having weakness in his legs since October of this year. Also in the past he has had a gastric sleeve for gastroplasty, they have for 2 years and apparently he just did not tolerate it with nausea, a lot of dysphagia and this was taken out. This was done by Dr. Salmon in [place]. He was admitted back in October for lower extremity weakness and falling all the time and he had a UTI and apparently during that time with the UTI he had some confusion and altered mental status at that time. He went home after that and got physical therapy. He was on a walker up until January and then downsized to a cane. Apparently was improving. He had no real rehabilitation after that point. On Saturday, a couple days, Saturday morning which I believe that was the day before he presented he hit [place] and apparently he had fallen and he had trouble getting up off the floor. They found him on the floor after he tried to get out of bed. States that he noticed he became more sleepy over the last couple of days and then he regressed back to a walker. He was found sprawled across the bed in the morning and was unable to get out of bed and she noted some confusion and left facial drooping and concerned about his left eye with ptosis, a little bit of slurred speech. They called 911. Presented here. Laboratory revealed he had positive opiates in the urine although no history of pain medicines other than Tylenol or ibuprofen. He was quite drowsy and concerned about the left side of his face, the left eye. 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 He does complain of numbness and tingling in lower extremities. Denies any nausea, vomiting or diarrhea. Presented to the hospital, altered mental status, concern about possible CVA. He showed steady improvement. They held some of his medications. They watched his blood sugar pretty carefully. Dr. Xiao was consulted on 02/26/2017 and he felt it was a global encephalopathy of uncertain etiology. Negative CT of the head. Showed clinical improvement and felt he was back to baseline. No evidence of residual lateralizing deficits or neurologic deficit. His left face and eye were unremarkable. Blood sugars were maintained and he was treated for pneumonia on chest x-ray. He had a chest x-ray on 02/25, interval development of small infiltrate in the mid left lung. So this was treated aggressively. Clinically improved. Remained afebrile. He is still pretty weak and so wanted to go to rehab. DISCHARGE MEDICATIONS: He is on Coumadin 2 mg Wednesdays and Fridays, 4 mg Saturday, Saturday, Saturday, and Saturdays. He is on Altace 10 mg a day. Potassium chloride 20 mEq q.a.m. Omeprazole 40 mg a day. Multivitamin 1 a day. Mirabegron ER 25 mg at bedtime. Metoprolol 50 mg b.i.d. Metformin 1000 mg b.i.d. Synthroid 112 mcg q.a.m. He is getting nebulizer treatments. His insulin detemir 80 units at bedtime, and 20 units q.a.m. Glimepiride 4 mg b.i.d. Lasix 40 mg q.a.m. Zyrtec 10 mg at bedtime. Pulmicort 0.5 mg b.i.d. Atorvastatin 40 mg at bedtime. Aspirin 81 mg a day. Ascorbic acid 500 mg q.a.m. Tylenol 650 mg q.6 hours p.r.n. cc: Geoff Olsen MD
[2017-02-28] MEDS: MYRBETRIQ E.R. PO SCH (21:14)
[2017-02-28] MEDS: ZYRTEC PO SCH (21:14)
[2017-02-28] MEDS: LIPITOR PO SCH (21:14)
[2017-02-28] MEDS: COUMADIN PO SCH (21:20)
--- NOTE | 2017-03-01 00:23 | Carotid Study ---
DATE: 02/26/2017 PROCEDURE: Carotid duplex imaging. REFERRING PHYSICIAN: Dr. Tanner. INTERPRETING PHYSICIAN: Dr. Ashby. TECH: [place]. INDICATIONS: TIA. OBSERVED DATA RIGHT LEFT Brachial Blood Pressure Carotid Pulse Bruits: Carotid/Sub DIAGRAM OF ULTRASOUND IMAGING R L RIGHT INT EXT INT EXT LEFT Sriram (cm/s) Sriram (cm/s) Subclavian 136/0 Subclavian 113/0 CCA Proximal 71/10 CCA Proximal 62/9 CCA Distal 76/12 CCA Distal 58/13 Bulb 94/9 Bulb 57/11 ICA Proximal 78/14 ICA Proximal 70/17 ICA Mid 75/16 ICA Mid 61/17 ICA Distal 68/13 ICA Distal 79/20 ECA 115/15 ECA 204/10 Vertebral 44/8 Vertebral 35/4 ICA/CCA Ratio 1.0 ICA/CCA Ratio 1.3 % Stenosis 0-39% % Stenosis 0-39% FINDINGS: There is minimal atherosclerotic disease in the right carotid system. There is some mild scattered calcific plaque in the distal left common carotid artery. There are no ulcerated plaques. There is antegrade vertebral flow bilaterally. PHYSICIAN INTERPRETATION: Mild plaque disease as described above. There are no hemodynamically significant lesions. cc: MD Gus Martinez MD
[2017-03-01] MEDS: ATROVENT NEB INH SCH ×2 (03:56→09:39)
[2017-03-01] MEDS: XOPENEX NEB INH SCH ×2 (03:56→09:39)
[2017-03-01] MEDS: HUMULIN R SUBQ SCH (06:27)
[2017-03-01 06:49] LABS: MANUAL DIFF NEEDED? NO
[2017-03-01] MEDS ORDERED: INSULIN PEN NEEDLES ONE (06:54)
[2017-03-01 07:01] LABS: BASO% 0.2 % (0.0-0.8); EOS# 0.16 X1000 (0.0-0.7); EOS% 2.7 % (0.0-10.0); HEMATOCRIT 35.3 % (42.0-52.0); HEMOGLOBIN 11.7 g/dL (14.0-18.0); LYMPH# 2.59 X1000 (1.2-3.4); LYMPH% 43.1 % (20.5-51.1); MCH 30.4 PG (27-31); MCHC 33.1 g/dL (33-37); MCV 91.7 FL (81-99); MONO# 0.68 X1000 (0.11-0.59); MONO% 11.3 % (1.7-9.3); MPV 9.7 FL (7.4-10.4); NEUT% 42.7 % (42.2-75.2); PLT 247 X1000 (130-400); RBC 3.85 XMIL (4.7-6.1)
[2017-03-01 07:08] LABS: AGAP 14; ALBUMIN 3.2 g/dL (3.5-5.0); ALKALINE PHOSPHATASE 72 U/L (32-122); BUN 25 mg/dL (8-22); CALCIUM 8.9 mg/dL (8.8-10.2); CHLORIDE 100 mmol/L (98-107); COSMO 281; GOT 39 U/L (10-34); GPT 40 U/L (10-44); MAGNESIUM 2.4 mg/dL (1.5-2.7); POTASSIUM 4.4 mmol/L (3.5-5.1); SODIUM 139 mmol/L (136-145); TCO2 25 mmol/L (25-35); TOTAL BILIRUBIN 0.28 mg/dL (0.20-1.00); TOTAL PROTEIN 7.4 g/dL (6.3-8.3)
[2017-03-01 07:17] LABS: INR 2.29; PROTIME 25.4 Seconds (9.2-11.7)
[2017-03-01 08:44] VITALS: BP 119/71
[2017-03-01] MEDS: MAALOX PLUS LIQUID PO SCH (08:55)
[2017-03-01] MEDS: GLUCOPHAGE PO SCH (08:56)
[2017-03-01] MEDS: ASPIRIN EC PO SCH (08:56)
[2017-03-01] MEDS: SYNTHROID PO SCH (08:56)
[2017-03-01] MEDS: PRILOSEC PO SCH (08:56)
[2017-03-01] MEDS: CENTRUM SILVER PO SCH (08:56)
[2017-03-01] MEDS: TOPROL XL PO SCH (08:57)
[2017-03-01] MEDS: AMARYL PO SCH (08:57)
[2017-03-01] MEDS: VITAMIN C PO SCH (08:57)
[2017-03-01] MEDS: ALTACE PO SCH (08:57)
[2017-03-01] MEDS: KLOR-CON PO SCH (08:57)
[2017-03-01] MEDS: LASIX PO SCH (08:57)
[2017-03-01] MEDS: LEVEMIR SUBQ SCH (08:58)
[2017-03-01] MEDS: PATIENT'S OWN MED PO SCH ×2 (08:58→08:59)
[2017-03-01] MEDS: PULMICORT INH SCH (09:41)
== END 2017-03-01 11:08 ==
LOC: ED 04:27 → SUATTDRO 11:58 → 3N 11:58 → EDIPHOLD 12:45 → 3N 16:28
PROVIDERS: ATTEND Emergency Medicine